=== PATIENT | female | born 1975 | race Caucasian/White ===

== ENCOUNTER → 2022-08-19 14:58 | Outpatient (BNVA) | payer OTHER, SELFPAY | PROVIDERS: PCP Internal Medicine; Visit Provider Physician Assistant Medical | DX: S60.571A Other superficial bite of hand of right hand, initial encounter (principal); W50.3XXA Accidental bite by another person, initial encounter | CPT/HCPCS: 99202 ==

== ENCOUNTER → 2022-08-20 13:24 | Outpatient (BNVA) | payer OTHER, SELFPAY | PROVIDERS: PCP Internal Medicine; Visit Provider Internal Medicine | DX: S60.571A Other superficial bite of hand of right hand, initial encounter (principal); W50.3XXA Accidental bite by another person, initial encounter | CPT/HCPCS: 99213 ==

== ENCOUNTER → 2023-12-22 13:26 | Outpatient (BNVA) | payer OTHER, SELFPAY | PROVIDERS: PCP Internal Medicine; Visit Provider Physician Assistant Medical | DX: S60.471A Other superficial bite of left index finger, initial encounter (principal); S60.477A Other superficial bite of left little finger, initial encounter; W50.3XXA Accidental bite by another person, initial encounter | CPT/HCPCS: 99203 ==